=== PATIENT | male | born 2000 | race Caucasian/White ===

== ENCOUNTER 2023-01-25 20:25 | Emergency (ER) | payer OTHER, SELFPAY ==
[2023-01-25 20:28] VITALS: BP 135/80; PULSE 66; RESP 14; TEMP 37.4; O2SAT 98; BMI 24.9
--- NOTE | 2023-01-25 20:44 | ED_ITS ---
HPI - Eye Problem General Chief complaint: Eye Problems Stated complaint: Eye Discharge Time Seen by Provider: 01/25/23 20:34 Source: patient Mode of arrival: walk-in History of Present Illness HPI Narrative: This afternoon the patient suddenly developed redness, tearing and yellowish drainage from both eyes. He has nasal congestion, ear fullness and mild cough for the last few days. No fever. he does not wear contact lenses. He said that he has not recently had the sensation of eye foreign body recently. Related Data Allergies Allergy/AdvReac Type Severity Reaction Status Date / Time No Known Drug Allergies Allergy Verified 01/25/23 20:31 Exam Narrative Exam Narrative: General: The patient appears well and in no apparent distress. Patient is resting comfortably on cart. Skin: Warm, dry, no pallor noted. Head: Normocephalic, atraumatic Neck: Supple, trachea mid-line, no tenderness, no lymphadenopathy Eye: Normal extraocular motion without associated pain. Pupils equal, round and reactive to light. Conjunctival injection noted bilaterally with stringy discharge, which I removed. No swelling of the upper/lower eyelid. Patient's upper eyelid was everted - no evidence of foreign body. The patient had ALCAINE/TETRACAINE applied to the left & right eye with fluorescein dye instilled afterward. Exam with Wood's lamp showed no uptake at the cornea. No evidence of hyphema, dendritic lesion, corneal ulcerations, preseptal cellulitis or orbital cellulitis. Ears, Nose, Mouth, and Throat: oral mucosa is moist, mild nasal congestion and rhinorrhea Respiratory: Patient is in no distress Neurological: A&O x4, normal speech Psychiatric: Cooperative and interactive. Constitutional Vital Signs, click to edit/add: Last Vital Signs Temp 99.3 F 01/25/23 20:28 Pulse 66 01/25/23 20:28 Resp 14 01/25/23 20:28 BP 135/80 01/25/23 20:28 Pulse Ox 98 01/25/23 20:28 Course Vital Signs Vital signs: Vital Signs Temperature 99.3 F 01/25/23 20:28 Pulse Rate 66 01/25/23 20:28 Respiratory Rate 14 01/25/23 20:28 Blood Pressure 135/80 01/25/23 20:28 Pulse Oximetry 98 01/25/23 20:28 Temperature 99.3 F 01/25/23 20:28 Pulse Rate 66 01/25/23 20:28 Respiratory Rate 14 01/25/23 20:28 Blood Pressure 135/80 01/25/23 20:28 Pulse Oximetry 98 01/25/23 20:28 MDM - Eye Problem MDM Narrative Medical decision making narrative: patient had 1st dose of tobramycin applied to both eyes in the ED and then was discharged home with the container of tobramycin to use at home - 1drop in each eye QID for one week. referred to local creative arts therapist for follow up. ED return if he worsens. Discharge Plan Discharge Chief Complaint: Eye Problems Clinical Impression: Bacterial conjunctivitis, Upper respiratory infection Patient Disposition: Home, Self-Care Time of Disposition Decision: 20:44 Instructions: Upper Respiratory Infection (ED), Conjunctivitis (ED) Stand Alone Forms: Portal Instructions Referrals: MARIANA SCHWARZ [Physician] - As soon as possible MARIANA MILIAN [Physician] - As soon as possible
[2023-01-25] MEDS: TETRACAINE HCL 0.5% OP SOL 80 DROP/4 ML BOTTLE OP (20:45)
[2023-01-25] MEDS: FLUORESCEIN SODIUM 1 MG STRIP OP (20:45)
--- NOTE | 2023-01-25 20:47 | PC.NURSE ---
bilat eye discharge.
[2023-01-25] MEDS: TOBRAMYCIN 0.3% OP SOL 100 DROP/5 ML BOTTLE OP (20:54)
== END 2023-01-25 20:59 | disposition home or self-care (01) ==
PROVIDERS: Emergency Provider Emergency Medicine
DX: H10.9 Unspecified conjunctivitis (principal); J06.9 Acute upper respiratory infection, unspecified
CPT/HCPCS: 99284

== ENCOUNTER 2023-01-27 19:08 | Emergency (ER) | payer OTHER, SELFPAY ==
[2023-01-27 19:11] VITALS: BP 133/79; PULSE 72; RESP 16; TEMP 37.1; O2SAT 99; BMI 25.1
--- NOTE | 2023-01-27 19:27 | ED.URI1 ---
HPI - URI/Sore Throat General Chief Complaint: Upper Respiratory Infection Stated Complaint: RETURN-sore throat/eyes Time Seen by Provider: 01/27/23 19:09 Source: patient History of Present Illness HPI Narrative: This 22-year-old male with no significant medical history presents for evaluation of sore throat and ear pressure. He was seen here 2 days ago for red runny eyes. He was given tobramycin eyedrops that she has continued to use. He states he had a sore throat at that time but was told that the eye drops should help his throat because they are all connected . He has been using the eyedrops in his eyes are improving but he has had a persistent sore throat with painful swallowing. He also has pressure in his ear is right greater than left. He has not had any nausea vomiting or diarrhea. He has no headache or neck pain. Has no skin rash. He does not think that he has had a fever. He states that he has not taken anything for the throat pain but has pain when he swallows. He states he has not eaten or drank anything today because his throat hurts. Related Data Home Medications Medication Instructions Recorded Confirmed tobramycin 0.3 % eye drops 2 drp ophthalmic (eye) Q4H 01/27/23 01/27/23 Allergies Allergy/AdvReac Type Severity Reaction Status Date / Time No Known Drug Allergies Allergy Verified 01/25/23 20:31 Review of Systems ROS Status of ROS 10 or more systems reviewed and unremarkable except as noted in history and below PFSH PFSH Social History Smoking status: Current every day smoker Exam Narrative Exam Narrative: Nurses note and vital signs reviewed and patient is not hypoxic. He is afebrile with normal vital signs General: The patient appears well and in no apparent distress. Patient is resting comfortably on cart. Skin: Warm, dry, no pallor noted. There is no rash noted. Head: Normocephalic, atraumatic Eye: Conjunctiva are mildly injected, pupils are equal and reactive Ears, Nose, Mouth, and Throat: oral mucosa is moist. Mild clear rhinorrhea noted, posterior pharynx is erythematous with no exudate or tonsillar hypertrophy. There is no swelling of the tongue, uvula or pharyngeal soft tissues, there is no pooling of secretions in the oropharynx, tympanic membranes were easily visualized and appear normal with no redness retraction or bulging Neck: Supple, no meningeal signs, no appreciable lymphadenopathy Cardiovascular: Regular Rate and Rhythm Respiratory: Patient is in no distress, no accessory muscle use, lungs are clear to auscultation, no wheezing, rales or rhonchi Back: non-tender, no CVA tenderness bilaterally to percussion Musculoskeletal: The patient has no evidence of calf tenderness, no pitting edema, symmetrical pulses noted bilaterally Neurological: A&O x4, normal speech Psychiatric: Cooperative Constitutional Vital Signs, click to edit/add: Last Vital Signs Temp 98.8 F 01/27/23 19:11 Pulse 80 01/27/23 20:26 Resp 17 01/27/23 20:26 BP 126/78 01/27/23 20:26 Pulse Ox 100 01/27/23 20:26 O2 Del Method Room Air 01/27/23 20:26 Course Vital Signs Vital signs: Vital Signs Temperature 98.8 F 01/27/23 19:11 Pulse Rate 72 01/27/23 19:11 Respiratory Rate 16 01/27/23 19:11 Blood Pressure 133/79 01/27/23 19:11 Pulse Oximetry 99 01/27/23 19:11 Temperature 98.8 F 01/27/23 19:11 Pulse Rate 80 01/27/23 20:26 Respiratory Rate 17 01/27/23 20:26 Blood Pressure 126/78 01/27/23 20:26 Pulse Oximetry 100 01/27/23 20:26 Oxygen Delivery Method Room Air 01/27/23 20:26 MDM - URI/Sore Throat MDM Narrative Medical decision making narrative: 22-year-old male with no significant medical history presents for evaluation of 3 days of red watery eyes. He was seen on Friday and given antibiotics, tobramycin. It was explained to him at that time that the antibiotics should help his sore throat because everything is all connected . His conjunctivitis appears to be clearing up but he persists with a sore throat. He does not have any fever, headache neck pain or stiffness. He has no skin rash. He is not having any nausea vomiting or diarrhea. His posterior pharynx is mildly erythematous. He states he has not been able to eat or drink all day due to the pain in his throat. There was no pooling of secretions or swelling of the posterior pharynx, tongue or uvula. Strep testing and covered 19 testing were ordered. He was medicated emergency department with ibuprofen and Tylenol for his symptoms. Strep and COVID testing are negative. He will be treated with amoxil for the ongoing sore throat pending culture results. Lab Data Labs: Lab Results 01/27/23 Range/Units 19:35 SARS-CoV-2 (PCR) Negative (NEGATIVE) Streptococcus Screen Negative Discharge Plan Discharge Chief Complaint: Upper Respiratory Infection Clinical Impression: Upper respiratory infection, Pharyngitis Patient Disposition: Home, Self-Care Time of Disposition Decision: 19:59 Condition: Good Mode of Transportation: Private Vehicle Prescriptions / Home Meds: No Action tobramycin 0.3 % drops 2 drp ophthalmic (eye) Q4H Instructions: Pharyngitis (ED), Upper Respiratory Infection (ED) Stand Alone Forms: Portal Instructions Referrals: Physician,Non-Staff, MD [Primary Care Provider] - 1 week Discharge Date/Time: 01/27/23 20:25
--- NOTE | 2023-01-27 19:27 | PC.NURSE ---
patient here friday diagnosed with conjunctivitis and URI. given tobramycin drops to take every 4 hours. states today throat is worse. has not been able to eat or drink due to pain. tried throat numbing spray and cough drops with no help. c/o bilateral ear pain and cough.
[2023-01-27] MEDS: ACETAMINOPHEN 325 MG TABLET 650 MG PO (19:46)
[2023-01-27] MEDS: IBUPROFEN 600 MG TABLET PO (19:46)
[2023-01-27 19:54] LABS: Internal Control Within Normal Limits; SARS-CoV-2 Ag NEGATIVE (NEGATIVE); Strep A Antigen Screen Negative
[2023-01-27] MEDS: AMOXICILLIN 500 MG CAPSULE PO (20:16)
[2023-01-27 20:26] VITALS: BP 126/78; PULSE 80; RESP 17; O2SAT 100
[2023-01-28 11:34] LABS: SARS-CoV-2 NAA NOT DETECTED (NOT DETECTE)
== END 2023-01-27 20:25 | disposition home or self-care (01) ==
PROVIDERS: Emergency Provider Emergency Medicine
DX: J02.9 Acute pharyngitis, unspecified (principal); J06.9 Acute upper respiratory infection, unspecified; F17.210 Nicotine dependence, cigarettes, uncomplicated; Z20.822 Contact with and (suspected) exposure to COVID-19
CPT/HCPCS: 87070; 87635; 87811; 87880; 99284